=== PATIENT | female | born 1965 | race Caucasian/White ===

== ENCOUNTER 2023-07-07 11:06 | Outpatient (OUT) | payer OTHER, SELFPAY ==
--- NOTE | 2023-07-07 11:12 | ECG_ITS ---
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
== END 2023-07-07 11:07 | disposition home or self-care (01) ==
LOC: PST 11:10
PROVIDERS: PCP Family Medicine; Visit Provider Orthopaedic Surgery
DX: Z01.810 Encounter for preprocedural cardiovascular examination (principal); M65.332 Trigger finger, left middle finger
CPT/HCPCS: 93005

== ENCOUNTER 2023-07-11 11:55 | Day surgery (SDC) | payer OTHER, SELFPAY ==
[2023-07-07 11:48] VITALS: BP 144/80; PULSE 42; RESP 18; TEMP 36.2; O2SAT 97; BMI 45.4
[2023-07-11 12:21] VITALS: BP 170/92; PULSE 45; RESP 20; TEMP 36.4; O2SAT 96; BMI 44.1
[2023-07-11] MEDS: LACTATED RINGER'S SOLUTION 1,000 ML 50 ML IV (12:30)
[2023-07-11] MEDS: CEFAZOLIN SODIUM/DEXTROSE,ISO 2 GM/50 ML PIGGYBACK IV (12:55)
[2023-07-11] MEDS: BUPIVACAINE HCL 0.5% PF 50 MG/10 ML VIAL 5 ML INJ (13:30)
[2023-07-11] MEDS: LIDOCAINE HCL 1%-EPINEPHRINE 1:100,000 10 ML MDV 5 ML INJ (13:35)
[2023-07-11 13:52] VITALS: BP 161/85; PULSE 61; RESP 16; O2SAT 95
[2023-07-11 14:25] VITALS: BP 179/97; PULSE 101; RESP 16; O2SAT 97
--- NOTE | 2023-07-11 17:47 | P.ORPRC_ITS ---
Procedure Note Date of procedure: 07/11/23 Pre-op diagnosis: Left long trigger finger Post-op diagnosis: same as pre-op Procedure: Procedure: Left long trigger finger release Operative procedure: After informed consent was obtained the patient brought to the operating room where monitored anesthetic was administered. A total of 6 mL of an equal mixture of 1% lidocaine with epinephrine and 0.5% Marcaine plain were infiltrated over the proximal incision site. Hand and arm were prepped and draped in usual sterile fashion after placing a well-padded tourniquet. The arm was elevated, exsanguinated, and the tourniquet was inflated to 250 mmHg. A 1.5 cm incision was made in a longitudinal fashion overlying the A1 esther of the left long finger. Was identified and then released with a 15 blade. Underlying tendon appeared normal. Flexion and extension of the finger resulted in no triggering. It was closed with a nylon suture after irrigation. Sterile dressing was placed. Patient was brought to the recovery room in stable condition. There were no in traoperative or immediate postoperative complications. Anesthesia: General-LMA Surgeon: Emil Marie Estimated blood loss (mL): 1 Pathology: none sent Condition: stable Disposition: PACU
== END 2023-07-11 14:25 | disposition home or self-care (01) ==
PROVIDERS: PCP Family Medicine; Visit Provider Orthopaedic Surgery
PROC: (CPT 1810; principal; 2023-07-11 13:00)
DX: M65.332 Trigger finger, left middle finger (principal); G47.33 Obstructive sleep apnea (adult) (pediatric); Z87.891 Personal history of nicotine dependence; I10 Essential (primary) hypertension; K21.9 Gastro-esophageal reflux disease without esophagitis; E66.01 Morbid (severe) obesity due to excess calories; Z68.42 Body mass index [BMI] 45.0-49.9, adult; F32.A Depression, unspecified
CPT/HCPCS: 26055; J2704